=== PATIENT | male | born 1995 | race Caucasian/White ===

== ENCOUNTER 2022-12-13 13:22 | Emergency (ER) | payer BC ==
[~2022-12-13] VITALS: Ht 185.4 cm; Wt 121.8 kg
[2022-12-13 13:38] LABS: BASOPHILS # (AUTO) 0.1 X10'3 (0-0.2); BASOPHILS % (AUTO) 1.5 % (0-1); EOSINOPHILS # (AUTO) 0.1 X10'3 (0-0.9); HEMATOCRIT 47.2 % (42.0-52.0); HEMOGLOBIN 16.5 g/dl (14.0-17.9); LYMPHOCYTES # (AUTO) 2.6 X10'3 (1.1-4.8); LYMPHOCYTES % (AUTO) 29.6 % (21-51); MEAN CORPUSCULAR HEMOGLOBIN 30.5 PG (27.0-31.0); MEAN CORPUSCULAR HGB CONC 34.9 g/dL (33.0-36.5); MEAN CORPUSCULAR VOLUME 87.5 FL (78-98); MEAN PLATELET VOLUME 7.7 FL (7.4-10.4); MONOCYTES # (AUTO) 0.9 X10'3 (0-0.9); MONOCYTES % (AUTO) 9.9 % (2-12); NEUTROPHILS # (AUTO) 5.2 X10'3 (1.8-7.7); PLATELET COUNT 270 X10'3 (140-440); RED CELL DISTRIBUTION WIDTH 12.6 % (11.5-14.5); WHITE BLOOD COUNT 8.9 X10'3 (4.5-11.0)
[2022-12-13 13:52] LABS: ALANINE AMINOTRANSFERASE 181 U/L (12-78); ALBUMIN 4.7 G/DL (3.4-5.0); ALBUMIN/GLOBULIN RATIO 1.5 (1.1-1.5); ALKALINE PHOSPHATASE 65 IU/L (46-116); ANION GAP 5 (8-16); ASPARTATE AMINO TRANSFERASE 64 U/L (10-37); BILIRUBIN,TOTAL 0.9 MG/DL (0.1-1.0); BLOOD UREA NITROGEN 20 MG/DL (7-18); BUN/CREATININE RATIO 23.3 (10.0-20.0); CALCIUM 9.1 MG/DL (8.5-10.1); CHLORIDE 106 MMOL/L (99-107); CREATININE 0.86 MG/DL (0.60-1.10); GLUCOSE 102 MG/DL (70-104); POTASSIUM 3.4 MMOL/L (3.5-5.1); SODIUM 139 MMOL/L (135-145); TOTAL PROTEIN 7.9 G/DL (6.4-8.2); eGFR > 90 ML/MIN
[2022-12-13 13:59] LABS: MAGNESIUM 2.2 MG/DL (1.5-2.4)
[2022-12-13] MEDS ORDERED: potassium Cl 20 mEq SR tablet PO ONE (16:25)
[2022-12-13 16:28] VITALS: BP 137/96
== END 2022-12-13 16:56 | disposition home or self-care (01) ==
LOC: ER 13:23
DX: I49.3 Ventricular premature depolarization (principal); Z88.0 Allergy status to penicillin; Z79.899 Other long term (current) drug therapy
CPT/HCPCS: 36415; 71045; 80053; 83735; 83880; 84484; 85025; 93005; 99285

== ENCOUNTER 2023-07-18 09:29 | Emergency (ER) | payer BC ==
[~2023-07-18] VITALS: Ht 188 cm; Wt 127.7 kg
[2023-07-18 09:42] VITALS: TEMP 98.1
[2023-07-18] MEDS ORDERED: cloNIDine 0.1 mg tablet PO ONE (10:40)
[2023-07-18 11:06] VITALS: BP 149/96; PULSE 83; RESP 14; O2SAT 98
[2023-07-18] MEDS ORDERED: LISI10TA27 PO (11:17)
== END 2023-07-18 11:23 | disposition home or self-care (01) ==
LOC: ER 09:29
DX: R07.89 Other chest pain (principal); H81.12 Benign paroxysmal vertigo, left ear; Z20.822 Contact with and (suspected) exposure to COVID-19; I10 Essential (primary) hypertension; Z88.5 Allergy status to narcotic agent; Z88.0 Allergy status to penicillin; Z79.899 Other long term (current) drug therapy
CPT/HCPCS: 36415; 87811; 93005; 99283; 99284